=== PATIENT | male | born 1955 | race African-American/Black ===

== ENCOUNTER 2021-05-26 21:13 | Inpatient (IN) ==
[2021-05-26] MEDS ORDERED: SODIUM CHLORIDE 0.9% 1,000 ML IV STA (21:41)
[2021-05-26] MEDS ORDERED: ONDANSETRON 4 MG/2 ML VIAL IV STA (21:41)
[2021-05-26 22:25] LABS: Basophils % 0.3 % (0.0-0.8); Eosinophils % 0.5 % (0.00-10.9); Hematocrit 41.6 VOL% (42.0-52.0); Hemoglobin 14.2 GM/DL (14.0-18.0); Immature Granulocytes % 0.2 %; Immature Granulocytes Absolute 0.01 #; Lymphocytes # 1.7 10*3/uL (1.4-4.0); Lymphocytes % 26.1 % (21.2-54.2); Mean Corpuscular HGB Conc 34.1 GM/DL (32-36); Mean Corpuscular Volume 84.2 FL (87-102); Mean Platelet Volume 10.4 FL (9.6-12.0); Monocytes % 6.6 % (1.7-12.7); Neutrophils % 66.3 % (38.7-73.9); Platelet Count 182 T/CUMM (130-400); Red Blood Count 4.94 MC/CUMM (3.8-5.5); Red Cell Distribution Width 12.6 % (9.3-17.3); White Blood Count 6.4 T/CUMM (4-12)
[2021-05-26 22:37] LABS: INR 1.1; PT Patient Result 12.1 SECS (10.5-12.0)
[2021-05-26 22:43] LABS: Albumin 3.3 G/DL (3.4-5.0); Bilirubin,Total 0.4 MG/DL (0.20-1.00); Calcium 9.2 MG/DL (8.5-10.1); Osmolality,Calculated 279.8 MOS/KG (273-304); Total Protein 7.3 G/DL (6.4-8.2)
[2021-05-26] MEDS ORDERED: ALUM/MAG/SIMETH/LIDO VISC 1:1 30 ML BOTTLE PO STA (22:54)
[2021-05-26] MEDS ORDERED: ASPIRIN 325 MG TABLET PO STA (23:04)
[2021-05-26] MEDS ORDERED: NITROGLYCERIN SL 0.4 MG TABLET SL STA (23:05)
[2021-05-26] MEDS ORDERED: ENOXAPARIN 30 MG/0.3 ML SYRINGE SUBCUT STA (23:08)
[2021-05-26] MEDS ORDERED: ENOXAPARIN 100 MG/ML SYRINGE SUBCUT STA (23:09)
[2021-05-26] MEDS ORDERED: NICOTINE 21 MG/24 HR PATCH TRANSDERM PRN (23:39)
[2021-05-26] MEDS ORDERED: GLUCAGON 1 MG VIAL IM PRN ×2 (23:39)
[2021-05-26] MEDS ORDERED: hydrALAZINE 20 MG/1 ML VIAL IV PRN (23:39)
[2021-05-26] MEDS ORDERED: ONDANSETRON 4 MG/2 ML VIAL IV PRN (23:39)
[2021-05-26] MEDS ORDERED: diphenhydrAMINE CAP 25 MG CAPSULE PO PRN (23:39)
[2021-05-26] MEDS ORDERED: DEXTROSE 50% 25 GM/50 ML VIAL IV PRN (23:39)
[2021-05-26] MEDS ORDERED: ZALEPLON 5 MG CAPSULE PO PRN (23:39)
[2021-05-26] MEDS ORDERED: MORPHINE 2 MG/1 ML SYRINGE IV PRN (23:39)
[2021-05-26] MEDS ORDERED: guaiFENesin/DM ER 600-30 MG TABLET PO PRN (23:39)
[2021-05-26] MEDS ORDERED: DEXTROSE 10% 250 ML BAG IV PRN (23:46)
[2021-05-27] MEDS ORDERED: TICAGRELOR 90 MG TABLET PO STA
[2021-05-27] MEDS ORDERED: INFLUENZA VIRUS VACCINE 0.5 ML SYRINGE IM ONE (02:21)
[2021-05-27] MEDS ORDERED: PNEUMOCOCCAL VACCINE (13 VALENT) 0.5 ML SYRINGE IM ONE (02:21)
[2021-05-27 03:14] LABS: Basophils % 0.3 % (0.0-0.8); Eosinophils % 0.5 % (0.00-10.9); Hematocrit 39.8 VOL% (42.0-52.0); Hemoglobin 13.4 GM/DL (14.0-18.0); Immature Granulocytes % 0.2 %; Immature Granulocytes Absolute 0.01 #; Lymphocytes # 2.1 10*3/uL (1.4-4.0); Lymphocytes % 31.4 % (21.2-54.2); Mean Corpuscular HGB Conc 33.7 GM/DL (32-36); Mean Corpuscular Volume 85.2 FL (87-102); Mean Platelet Volume 10.3 FL (9.6-12.0); Monocytes % 7.6 % (1.7-12.7); Platelet Count 160 T/CUMM (130-400); Red Blood Count 4.67 MC/CUMM (3.8-5.5); Red Cell Distribution Width 12.8 % (9.3-17.3); White Blood Count 6.6 T/CUMM (4-12)
[2021-05-27 03:35] LABS: Bilirubin,Total 0.5 MG/DL (0.20-1.00); Calcium 8.9 MG/DL (8.5-10.1); Osmolality,Calculated 282.5 MOS/KG (273-304); Potassium 4.1 MMOL/L (3.5-5.1); Total Protein 6.9 G/DL (6.4-8.2)
[2021-05-27] MEDS: ENOXAPARIN 100 MG/ML SYRINGE SUBCUT SCH ×2 (06:37→17:33)
[2021-05-27 06:50] LABS: Mucus,Urine Occasional /LPF (Occasional); RBC,Urine <1 /HPF (0-4); Squamous Epithelial Cell,Urine Occasional /HPF (0-10)
[2021-05-27 06:51] LABS: Bilirubin,Urine Negative (Negative); Blood, Urine Negative (Negative); Glucose,Urine (UA) 250 mg/dL (Negative); Ketones,Urine 15 mg/dL (Negative); Nitrite,Urine Negative (Negative); Protein,Urine Trace mg/dL (Negative); Urine Appearance Clear (Clear); Urine Color Yellow (Yellow); Urine Urobilinogen 0.2 eU/dL (<2.0)
[2021-05-27] MEDS: INSULIN LISPRO 100 UNIT/ML SUBCUT SCH ×4 (08:16→22:27)
[2021-05-27] MEDS: PANTOPRAZOLE 40 MG TABLET PO SCH (08:59)
[2021-05-27] MEDS: ASPIRIN EC 81 MG TABLET PO SCH (08:59)
[2021-05-27] MEDS: amLODIPine 10 MG TABLET PO SCH (08:59)
[2021-05-27] MEDS ORDERED: TICAGRELOR 90 MG TABLET PO SCH (09:00)
[2021-05-27] MEDS ORDERED: diphenhydrAMINE CAP 50 MG CAPSULE PO ONE (09:44)
[2021-05-27] MEDS ORDERED: DIAZEPAM 5 MG TABLET PO ONE (09:44)
[2021-05-27] MEDS ORDERED: SODIUM CHLORIDE 0.9% 1,000 ML IV SCH (10:00)
[2021-05-27] MEDS ORDERED: NITROGLYCERIN DRIP 50 MG/250 ML BOTTLE IV ONE (11:52)
[2021-05-27] MEDS ORDERED: VERAPAMIL 5 MG/2 ML VIAL ONE (11:52)
[2021-05-27] MEDS ORDERED: HEPARIN/NACL 0.9% 2 UNITS/ML 2,000 UNIT/1,000 ML BAG IV ONE (11:52)
[2021-05-27] MEDS ORDERED: MIDAZOLAM 2 MG/2 ML VIAL ONE (11:55)
[2021-05-27] MEDS ORDERED: HYDROmorphone 1 MG/1 ML SYRINGE ONE (11:56)
[2021-05-27] MEDS ORDERED: ENOXAPARIN 30 MG/0.3 ML SYRINGE ONE (12:14)
[2021-05-27] MEDS ORDERED: TIROFIBAN 5,000 MCG/100 ML PREMIX IV ONE (12:15)
[2021-05-27] MEDS: ACETAMINOPHEN 325 MG TABLET PO PRN (15:31)
[2021-05-28 05:34] LABS: Basophils % 0.5 % (0.0-0.8); Eosinophils % 0.5 % (0.00-10.9); Hematocrit 42.8 VOL% (42.0-52.0); Hemoglobin 14.2 GM/DL (14.0-18.0); Immature Granulocytes % 0.4 %; Immature Granulocytes Absolute 0.03 #; Lymphocytes # 2.4 10*3/uL (1.4-4.0); Lymphocytes % 31.6 % (21.2-54.2); Mean Corpuscular HGB Conc 33.2 GM/DL (32-36); Mean Corpuscular Volume 86.6 FL (87-102); Mean Platelet Volume 10.4 FL (9.6-12.0); Monocytes % 8.7 % (1.7-12.7); Neutrophils % 58.3 % (38.7-73.9); Platelet Count 165 T/CUMM (130-400); Red Blood Count 4.94 MC/CUMM (3.8-5.5); White Blood Count 7.5 T/CUMM (4-12)
[2021-05-28] MEDS: ENOXAPARIN 100 MG/ML SYRINGE SUBCUT SCH (05:55)
[2021-05-28 06:06] LABS: Calcium 9.3 MG/DL (8.5-10.1); Osmolality,Calculated 276.7 MOS/KG (273-304)
[2021-05-28] MEDS: PANTOPRAZOLE 40 MG TABLET PO SCH (08:44)
[2021-05-28] MEDS: ASPIRIN EC 81 MG TABLET PO SCH (08:45)
[2021-05-28] MEDS: ACETAMINOPHEN 325 MG TABLET PO PRN (08:45)
[2021-05-28] MEDS: amLODIPine 10 MG TABLET PO SCH (08:45)
[2021-05-28] MEDS: INSULIN LISPRO 100 UNIT/ML SUBCUT SCH ×2 (08:46→12:25)
[2021-05-28] MEDS ORDERED: CLOPIDOGREL 75 MG TABLET PO SCH (09:00)
[2021-05-28] MEDS ORDERED: IBUPROFEN 600 MG TABLET PO PRN (10:35)
[2021-05-28 13:04] VITALS: BP 117/63
[2021-05-28] MEDS ORDERED: ROSUVASTATIN 20 MG TABLET PO SCH (21:00)
[2021-05-29] MEDS ORDERED: ENOXAPARIN 40 MG/0.4 ML SYRINGE SUBCUT SCH (09:00)
== END 2021-05-28 14:30 | disposition home or self-care (01) | DRG 251 ==
LOC: N.ED 21:13 → N.EDINP 23:39 → N.TELEN 05-27 01:19
PROVIDERS: ADMIT Internal Medicine; ATTEND Internal Medicine